=== PATIENT | female | born 1965 | race Caucasian/White ===

== ENCOUNTER 2018-04-06 18:50 | Emergency (ER) | payer OTHER, BC ==
--- NOTE | 2018-04-06 19:06 | Emergency Department Record ---
History of Present Illness - General Chief complaint: ENT Stated complaint: LT EAR PAIN Time Seen by Provider: 04/06/18 19:01 Source: Patient Mode of Arrival: Ambulatory Limitations: No limitations - History of Present Illness Initial comments: The patient is here due to L ear pain for 3 days. She has a long hx of Otitis externa and believes she has the same issue now. There is no ST, cough, fever, or ear drainage. MD complaint: Ear pain Onset/Timin -: Days(s) Location: L ear Severity: Moderate Severity scale (1-10): 5 Quality: Aching Consistency: Constant Improves with: None Worsens with: None Associated Symptoms: Discharge from ear - Related Data Previous Rx's Medication Instructions Recorded Neomycin/Polymyxin B Sulf/Hc 4 drop AFFEAR QID #10 ml 04/06/18 [Cortisporin Otic] Allergies Allergy/AdvReac Type Severity Reaction Status Date / Time amoxicillin Allergy HIVES Verified 04/06/18 18:56 ertapenem sodium Allergy HIVES Verified 04/06/18 18:56 [From Invanz] Penicillins Allergy HIVES Verified 04/06/18 18:56 Travel Screening - Travel/Exposure Within Last 30 Days Have you traveled within the last 30 days?: No - Travel/Exposure Within Last Year Have you traveled outside the [place] in the last year?: No - Additonal Travel Details Have you been exposed to anyone with a communicable illness?: No - Travel Symptoms Symptom Screening: None Review of Systems Constitutional: Denies: Chills, Fever Eyes: Denies: Eye discharge, Eye pain ENT: Reports: Ear pain Respiratory: Denies: Cough Past Medical History - SOCIAL HISTORY Smoking Status: Never smoker Alcohol Use: Occasional Drug Use: None - RESPIRATORY Hx Respiratory Disorders: No - CARDIOVASCULAR Hx Cardio Disorders: No - NEURO Hx Neuro Disorders: No - GI Hx GI Disorders: No Hx Diverticulitis: Yes Hx Reflux: Yes Hx Irritable Bowel: Yes - Hx Genitourinary Disorders: No - ENDOCRINE Hx Endocrine Disorders: No Hx Diabetes: No Hx Thyroid Disease: No - MUSCULOSKELETAL Hx Arthritis: No - PSYCH Hx Psych Problems: No - HEMATOLOGY/ONCOLOGY Hx Hematology/Oncology Disorders: No Family Medical History Any Significant Family History?: Yes Hx Cancer: Father, Mother, Grandparents Hx Diabetes: Mother, Grandparents Hx Heart Disease: Mother, Grandparents Hx HTN: Father, Mother Physical Exam - General General Appearance: Alert, Oriented x3, Cooperative, No acute distress - Head Head exam: Atraumatic, Normocephalic, Normal inspection - Eye Eye exam: Normal appearance, PERRL, EOMI - ENT ENT exam: Normal orophraynx. negative: Normal exam, TM's normal bilaterally Ear exam: Normal external inspection, External canal tenderness (L only with edema and tenderness.) Throat exam: Normal inspection. negative: Tonsillar erythema, Tonsillar exudate - Neck Neck exam: Normal inspection, Full ROM. negative: Tenderness - Respiratory Respiratory exam: Normal lung sounds bilaterally. negative: Respiratory distress Course Vital Signs 04/06/18 18:57 Temperature 98.4 F Pulse Rate 91 H Respiratory 18 Rate Blood Pressure 146/89 Pulse Ox 99 - Reevaluation(s) Reevaluation #1: I did discuss the need for the ear drops with the patient and the need for F/U if not better. 04/06/18 19:08 Disposition Disposition: Discharge Clinical Impression: Otitis externa Qualifiers: Otitis externa type: unspecified type Chronicity: acute Laterality: left Qualified Code(s): H60.502 - Unspecified acute noninfective otitis externa, left ear Disposition: Home, Self-Care Condition: (2) Stable Instructions: Otitis Externa (ED) Additional Instructions: Please use the ear drops as directed and please see your family doctor if not better in 2-3 days. Return to the ER for any worsening issues. Prescriptions: Neomycin/Polymyxin B Sulf/Hc [Cortisporin Otic] 4 drop AFFEAR QID #10 ml Forms: Patient Portal Access Time of Disposition: 19:06 Quality - Quality Measures Quality Measures: N/A - Blood Pressure Screening View Details: Yes Does Patient Have Any of the Following: No Blood Pressure Classification: Pre-Hypertensive BP Reading Systolic Measurement: 146 Diastolic Measurement: 89 Screening for High Blood Pressure: < Pre-Hypertensive BP, F/U Documented > [ [id number]] Pre-Hypertensive Follow-up Interventions: Referral to alternative/primary care provider.
== END 2018-04-06 19:12 | disposition home or self-care (01) ==
LOC: ER 18:50
DX: H60.502 Unspecified acute noninfective otitis externa, left ear (principal)
CPT/HCPCS: 99282